=== PATIENT | male | born 1995 | race Caucasian/White ===

== ENCOUNTER 2019-05-25 20:27 | Emergency (ER) | payer OTHER, BC ==
[2019-05-25] MEDS: RABIES VACC, HUMAN DIPLOID/PF 2.5 UNIT VIAL IM (23:17)
== END 2019-05-25 23:29 | disposition home or self-care (01) ==
LOC: FTE 20:27
DX: S71.151A Open bite, right thigh, initial encounter (principal); W54.0XXA Bitten by dog, initial encounter; Y92.9 Unspecified place or not applicable; Z23 Encounter for immunization
CPT/HCPCS: 90471; 90675; 99283-25

== ENCOUNTER 2019-05-28 06:52 | Emergency (ER) | payer OTHER, BC ==
[2019-05-28] MEDS: RABIES VACC, HUMAN DIPLOID/PF 2.5 UNIT VIAL IM (08:32)
[2019-05-28] MEDS: AMOXICILLIN/CLAV 875 MG TAB PO ×2 (08:43→08:45)
== END 2019-05-28 09:24 | disposition left against medical advice (07) ==
LOC: FTE 06:52
DX: S71.152D Open bite, left thigh, subsequent encounter (principal); W54.0XXD Bitten by dog, subsequent encounter; Z23 Encounter for immunization
CPT/HCPCS: 90471; 90675; 99281-25

== ENCOUNTER 2019-05-29 07:31 | Emergency (ER) | payer OTHER, BC ==
[2019-05-29] MEDS: RABIES IMMUNE GLOBULIN/PF 300 UNIT/ML VIAL IM (08:44)
[2019-05-29] MEDS ORDERED: RABIES IMMUNE GLOBULIN/PF 150 UNIT/ML VIAL IM (09:00)
== END 2019-05-29 09:01 | disposition home or self-care (01) ==
LOC: FTE 07:31
DX: Z29.14 Encounter for prophylactic rabies immune globulin (principal)
CPT/HCPCS: 90375; 96372; 99284-25